=== PATIENT | female | born 1990 | race Caucasian/White ===

== ENCOUNTER 2022-06-22 14:15 | Emergency (ER) | payer OTHER ==
[~2022-06-22] VITALS: Ht 157.5 cm; Wt 81.6 kg
[2022-06-22 14:20] VITALS: BP 125/88
--- NOTE | 2022-06-22 14:29 | NUR ---
Patient ambulated to Bed 11.
--- NOTE | 2022-06-22 14:31 | NUR ---
31/F C/O LOW BACK PAIN RADIATING TO LLQ ONSET 2 DAYS. DENIES NVD. PT STATES + AT HOME. PT STATES HX TUBAL LIGATION. DENIES NVD. AAO4, AFEBRILE. PMH: TUBAL LIGATION
[2022-06-22] MEDS ORDERED: NACL 0.9% 1,000 ML IV ONE (14:50)
--- NOTE | 2022-06-22 14:50 | NUR ---
IV ESTABLISHED TO RIGHT AC WITH 20G.
[2022-06-22 15:02] LABS: BASOPHILS # (AUTO) 0.1 K/uL (0.00-0.22); BASOPHILS % (AUTO) 0.7 % (0.0-2.0); EOSINOPHILS # (AUTO) 0.2 K/uL (0-0.4); EOSINOPHILS % (AUTO) 1.7 % (0.0-4.0); HEMATOCRIT 46.7 % (36-48); HEMOGLOBIN 15.4 g/dL (12.0-16.0); LYMPHOCYTES # (AUTO) 2.6 K/uL (2.5-16.5); LYMPHOCYTES % (AUTO) 24.2 % (20.5-51.1); MEAN CORPUSCULAR HEMOGLOBIN 30 pg (27-31); MEAN CORPUSCULAR HGB CONC 33 g/dL (33-37); MEAN CORPUSCULAR VOLUME 91.6 fL (80-94); MONOCYTES # (AUTO) 0.7 K/uL (0.8-1.0); MONOCYTES % (AUTO) 6.1 % (1.7-9.3); NEUTROPHILS # (AUTO) 7.4 K/uL (1.8-7.7); NEUTROPHILS % (AUTO) 67.3 % (42.2-75.2); PLATELET COUNT (AUTO) 326 K/uL (140-450); RED CELL DISTRIBUTION WIDTH 14.7 % (11.6-13.7); WHITE BLOOD COUNT (AUTO) 10.9 K/uL (4.8-10.8)
[2022-06-22] MEDS ORDERED: KETOROLAC 15 MG/ML VIAL IVP ONE (15:05)
[2022-06-22 15:06] LABS: BILIRUBIN,URINE 2+ (NEGATIVE); BLOOD, URINE 3+ (NEGATIVE); COLOR,URINE YELLOW (YELLOW); LEUKOCYTE ESTERASE ,URINE TRACE (NEGATIVE); NITRITE, URINE NEGATIVE (NEGATIVE); PH,URINE 5.5 (5.0-9.0); UGLUCOSE NEGATIVE (NEGATIVE)
--- NOTE | 2022-06-22 15:07 | NUR ---
US AT BEDSIDE
[2022-06-22 15:14] LABS: APPEARANCE,URINE HAZY (CLEAR)
--- NOTE | 2022-06-22 15:20 | NUR ---
US AT BEDSIDE
[2022-06-22 15:23] LABS: RBC,URINE 11-20 (MOD) /HPF (0-5)
[2022-06-22 15:25] LABS: ALBUMIN 3.9 g/dL (3.4-5.0); ANION GAP 13.5 (8-16); CARBON DIOXIDE 23.5 mmol/L (21-32); TOTAL BILIRUBIN 0.4 mg/dL (0.0-1.0)
[2022-06-22] MEDS ORDERED: POTASSIUM CHLORIDE 20% 40 MEQ/15 ML UDC PO ONE (15:55)
[2022-06-22 16:39] VITALS: BP 108/55
[2022-06-22] MEDS ORDERED: CEPH-588 PO (16:40)
[2022-06-22] MEDS ORDERED: IBUP-2213 PO (16:40)
--- NOTE | 2022-06-22 16:45 | NUR ---
Patient discharged with v/s stable. Written and verbal after care instructions given and explained. Patient alert, oriented and verbalized understanding of instructions. Ambulatory with steady gait. All questions addressed prior to discharge. ID band removed. Patient advised to follow up with PMD. Patient educated on indication of medication including possible reaction and side effects. Opportunity to ask questions provided and answered.
== END 2022-06-22 16:45 | disposition home or self-care (01) ==
LOC: MED 14:15
DX: N30.01 Acute cystitis with hematuria (principal)
CPT/HCPCS: 36415; 76817; 80053; 81001; 81025; 84702; 85025; 86900; 86901; 87086; 96374; 99284; J1885; Q0092; J7030